=== PATIENT | male | born 1990 | race Two or more races ===

== ENCOUNTER 2016-03-24 22:18 | Inpatient (IN) | payer OTHER ==
--- NOTE | 2016-03-24 22:31 | HP ---
COWS - Scale Resting Pulse: 0= [place] 80 or Below Sweatin=Flushed/Facial Moisture Restless Observation: 5= Unable to Sit Still Pupil Size: 1= Pupils >than Normal Bone or Joint Aches: 4=Acute Joint/Muscle Pain Runny Nose/ Eye Tearin= Runny Nose/Eyes GI Upset > 30mins: 2= Nausea/Diarrhea Tremor Observation: 2= Slight Tremor Visible Yawning Observation: 2= >3x During Session Anxiety or Irritability: 4=Extreme Anxiety Goose Flesh Skin: 0=Smooth Skin COWS Score: 24 CIWA Score - CIWA Score Nausea/Vomitin Muscle Tremors: 4-Moderate,w/Arms Extend Anxiety: 4-Mod. Anxious/Guarded Agitation: 4-Moderately Restless Paroxysmal Sweats: 3 Orientation: 1-Uncertain about Date Tacttile Disturbances: 0-None Auditory Disturbances: 0-None Visual Disturbances: 0-None Headache: 2-Mild CIWA-Ar Total Score: 21 Admission ROS BHS - HPI Chief Complaint: WITHDRAWAL SX'S. SEEKING DETOX TXMENT Allergies/Adverse Reactions: Allergies Allergy/AdvReac Type Severity Reaction Status Date / Time No Known Drug Allergies Allergy Verified 03/24/16 22:48 seafood Allergy Uncoded 03/24/16 22:26 History of Present Illness: 25 Y.O. MALE WITH OPIOID AND BENZO DEPENDENCE ADMITTED FOR DETOX TXMENT. Exam Limitations: No Limitations - Ebola screening Have you traveled outside of the country in the last 21 days: No Have you had contact with anyone from an Ebola affected area: No Have you been sick,other than usual withdrawal symptoms: No Do you have a fever: No - Review of Systems Constitutional: Chills, Loss of Appetite, Malaise, Night Sweats, Changes in sleep, Unintentional Wgt. Loss EENT: reports: Nose Congestion Respiratory: reports: No Symptoms reported Cardiac: reports: No Symptoms Reported GI: reports: Nausea, Poor Appetite, Abdominal cramping : reports: No Symptoms Reported Musculoskeletal: reports: Back Pain, Joint Pain Integumentary: reports: No Symptoms Reported Neuro: reports: No Symptoms reported Endocrine: reports: No Symptoms Reported Hematology: reports: No Symptoms Reported Psychiatric: reports: Anxious Other Systems: Reviewed and Negative Patient History - Patient Medical History Hx Anemia: No Hx Asthma: No Hx Chronic Obstructive Pulmonary Disease (COPD): No Hx Cancer: No Hx Cardiac Disorders: No Hx Congestive Heart Failure: No Hx Hypertension: No Hx Hypercholesterolemia: No Hx Pacemaker: No HX Cerebrovascular Accident: No Hx Seizures: No Hx Dementia: No Hx Diabetes: No Hx Gastrointestinal Disorders: No Hx Liver Disease: No Hx Genitourinary Disorders: No Hx Sexually Transmitted Disorders: No Hx Renal Disease (ESRD): No Hx Thyroid Disease: No Hx Human Immunodeficiency Virus (HIV): No Hx Hepatitis C: No Hx Depression: No Hx Suicide Attempt: No Hx Bipolar Disorder: No Hx Schizophrenia: No Other Medical History: DENIES - Patient Surgical History Past Surgical History: No - PPD History Previous Implant?: Yes Documented Results: Positive w/proof Implanted On Prior [facility] Admission?: No PPD to be Administered?: No - Smoking Cessation Smoking history: Current every day smoker Have you smoked in the past 12 months: Yes Aproximately how many cigarettes per day: 3 Cigars Per Day: 0 Hx Chewing Tobacco Use: No Initiated information on smoking cessation: Yes 'Breaking Loose' booklet given: 03/24/16 - Substance & Tx. History Hx Alcohol Use: No Hx Substance Use: Yes Substance Use Type: Cocaine, Heroin, Tranquilizers (XANAX) Hx Substance Use Treatment: Yes ([facility]) - Substances Abused COCAINE Route: Injection Frequency: 3-6 times per week Amount used: $20 Age of first use: 21 Date of Last Use: 03/22/16 HEROIN Route: Injection Frequency: Daily Amount used: 30 BAGS Age of first use: 18 Date of Last Use: 03/22/16 XANAX Route: Oral Frequency: Daily Amount used: 16 MG Age of first use: 23 Date of Last Use: 03/22/16 Family Disease History - Family Disease History Family History: Denies Admission Physical Exam S - Physical General Appearance: Yes: Appropriately Dressed, Mild Distress, Tremorous, Anxious HEENTM: Yes: EOMI, Normocephalic, Normal Voice, ASHLEY, Pharynx Normal Respiratory: Yes: Chest Non-Tender, Lungs Clear, Normal Breath Sounds, No Respiratory Distress, No Accessory Muscle Use Neck: Yes: No masses,lesions,Nodules, Supple, Trachea in good position Breast: Yes: Breast Exam Deferred Cardiology: Yes: Regular Rhythm, S1, S2, Tachycardia Abdominal: Yes: Normal Bowel Sounds, Non Tender, Soft Genitourinary: Yes: Within Normal Limits Back: Yes: Within Normal Limits Musculoskeletal: Yes: full range of Motion, Other (UNSTEADY GAIT) Extremities: Yes: Normal Capillary Refill, Normal Range of Motion, Non-Tender, Tremors Neurological: Yes: Alert, Motor Strength 5/5 Integumentary: Yes: Normal Color, Warm, Moist, Track [place], Other ([place] NOTE TO UPPER EXTREMITIES NOT WRISTS. STATES DID IT TO SCARE HIS MOTHER INTO GIVING HIM SOME MONEY. DENIES PREVIOUS OR CURRENT SI.) Lymphatic: Yes: Within Normal Limits - Diagnostic (1) Nicotine dependence Current Visit: Yes Status: Chronic Qualifiers: Nicotine product type: cigarettes Substance use status: uncomplicated Qualified Code(s): F17.210 - Nicotine dependence, cigarettes, uncomplicated (2) Opioid dependence with withdrawal Current Visit: Yes Status: Chronic (3) Sedative, hypnotic or anxiolytic dependence with withdrawal, uncomplicated Current Visit: Yes Status: Chronic (4) Cocaine dependence, uncomplicated Current Visit: Yes Status: Chronic Cleared for Admission S - Detox or Rehab [facility] Level of Care: Medically Managed Detox Regimen/Protocol: Methadone/Valium BHS Breath Alcohol Content Breath Alcohol Content: 0 Vital Signs - Vital Signs Vital Signs Refused: No Temperature: 97 F Temperature Source: Oral Pulse Rate: 78 Respiratory Rate: 18 Blood Pressure: 147/89 BP Location: Right Arm Blood Pressure Position: Sitting - Height Height: 5 ft 11 in - Weight Weight: 77.111 kg Weight Measurement Method: Stated by Patient Body Mass Index (BMI): 23.7 Urine Drug Screen - Test Device Lot Number: [id number] Expiration Date: 05/10/17 - Control Is Test Valid: Yes - Results Drug Screen Negative: No Urine Drug Screen Results: RUBÉN-Cocaine, OPI-Opiates, BZO-Benzodiazepines, OXY- Oxycodone
[2016-03-24 22:40] VITALS: BMI 23.7
[2016-03-24] MEDS ORDERED: guaiFENesin/D-METHORPHAN HB 10 ML UNIT-DOSE CUPS PO PRN (22:40)
[2016-03-24] MEDS ORDERED: LOPERAMIDE HCL 2 MG CAPSULE PO PRN (22:40)
[2016-03-24] MEDS ORDERED: diazePAM 5 MG TABLET PO ONE (22:40)
[2016-03-24] MEDS ORDERED: P-EPHED 60MG/TRIPROLIDI 2.5MG TABLET PO PRN (22:40)
[2016-03-24] MEDS ORDERED: MAGNESIUM CITRATE 300 ML BOTTLE PO PRN (22:40)
[2016-03-24] MEDS ORDERED: NICOTINE POLACRILEX 2 MG GUM BC PRN (22:40)
[2016-03-24] MEDS ORDERED: ACETAMINOPHEN 325 MG TABLET (FP) PO PRN (22:40)
[2016-03-24] MEDS ORDERED: diphenhydrAMINE HCL 50 MG CAPSULE PO PRN (22:40)
[2016-03-24] MEDS ORDERED: MAGNESIUM HYDROX 2400MG/30ML ORAL SUSPENSION 30 ML CUP PO PRN (22:40)
[2016-03-24] MEDS ORDERED: METHADONE HCL 10 MG TABLET (FOR DETOX USE ONLY) PO ONE ×2 (22:40→23:00)
[2016-03-24] MEDS ORDERED: IBUPROFEN 400 MG TABLET (FP) PO PRN (22:40)
[2016-03-24] MEDS ORDERED: MAG HYDROX/AL HYDROX/SIMETH 30 ML UNIT-DOSE CUP PO PRN (22:40)
[2016-03-24] MEDS ORDERED: MENTHOL/PHENOL 1 EACH UD MM PRN (22:40)
[2016-03-24] MEDS: diazePAM 5 MG TABLET PO SCH (23:45)
[2016-03-25] MEDS: diazePAM 5 MG TABLET PO SCH ×3 (05:25→22:55)
[2016-03-25] MEDS: diazePAM 5 MG TABLET PO PRN ×2 (09:07→18:21)
[2016-03-25] MEDS: PRENATAL VITAMINS W/ FOLIC ACID TABLET (FP) PO SCH (09:15)
[2016-03-25 09:59] LABS: ALBUMIN 3.6 g/dl (3.4-5.0); ANION GAP 10 (8-16); BILIRUBIN,TOTAL 0.4 mg/dL (0.2-1.0); CALCIUM 9.1 mg/dL (8.5-10.1); CO2 28 mmol/L (21-32); CREATININE 1.2 mg/dL (0.7-1.3); GLUCOSE,RANDOM 130 mg/dL (74-106); MCH 27.7 pg (25.7-33.7); MCHC 32.8 g/dl (32.0-35.9); MEAN CELL VOLUME 84.4 fl (80-96); PLATELET COUNT 129 K/MM3 (134-434); RDW 15.6 % (11.9-15.9); SGOT/AST 18 U/L (15-37); SGPT/ALT 22 U/L (12-78); TOT PROT 6.5 g/dl (6.4-8.2); WHITE BLOOD COUNT 4.8 K/mm3 (4.0-10.0)
[2016-03-25 10:00] LABS: ALK PHOS 47 U/L (45-117)
[2016-03-25] MEDS ORDERED: METHADONE HCL 10 MG TABLET (FOR DETOX USE ONLY) PO SCH (10:00)
[2016-03-25] MEDS: NICOTINE 14 MG/24 HOURS TOPICAL PATCH TD SCH (10:31)
--- NOTE | 2016-03-25 10:44 | PN ---
[facility] CIWA - CIWA Score Nausea/Vomitin Muscle Tremors: 2 Anxiety: 2 Agitation: 3 Paroxysmal Sweats: 3 Orientation: 0-Oriented Tacttile Disturbances: 1-Very Mild Itch/Numbness Auditory Disturbances: 0-None Visual Disturbances: 0-None Headache: 0-None Present CIWA-Ar Total Score: 13 S COWS - Scale Resting Pulse: 1= [place] 81-100 Sweatin=Flushed/Facial Moisture Restless Observation: 1= Difficult to Sit Still Pupil Size: 1= Pupils >than Normal Bone or Joint Aches: 1= Mild Discomfort Runny Nose/ Eye Tearin= Nasal Congestion GI Upset > 30mins: 1= Stomach Cramp Tremor Observation of Outstretched Hands: 1= Tremor [place], Not Seen Yawning Observation: 0= None Anxiety or Irritability: 2=Irritable/Anxious Goose Flesh Skin: 0=Smooth Skin COWS Score: 11 S Progress Note (SOAP) Subjective: interrupted sleep, sweats, Objective: 03/25/16 10:43 Vital Signs Temperature 98.4 F 03/25/16 10:00 Pulse Rate 98 H 03/25/16 10:00 Respiratory Rate 18 03/25/16 10:00 Blood Pressure 127/73 03/25/16 10:00 O2 Sat by Pulse Oximetry (%) Laboratory Results - last 24 hr 03/25/16 03/25/16 07:00 07:00 WBC 4.8 RBC 4.81 Hgb 13.3 Hct 40.6 MCV 84.4 MCHC 32.8 RDW 15.6 Plt Count 129 L MPV 10.0 Sodium 142 Potassium 3.6 Chloride 104 Carbon Dioxide 28 Anion Gap 10 BUN 11 Creatinine 1.2 Creat Clearance w eGFR > 60 Random Glucose 130 H Calcium 9.1 Total Bilirubin 0.4 AST 18 ALT 22 Alkaline Phosphatase 47 Total Protein 6.5 Albumin 3.6 pt aox3 in nad , lying in bed . 03/25/16 10:44 Assessment: withdrawl sx's 03/25/16 10:43 cont. detox increase fluids
--- NOTE | 2016-03-25 11:58 | EKG ---
Test Reason : Blood Pressure : / mmHG Vent. Rate : 080 BPM Atrial Rate : 080 BPM P-R Int : 178 ms QRS Dur : 094 ms QT Int : 374 ms P-R-T Axes : 063 077 056 degrees QTc Int : 431 ms NORMAL SINUS RHYTHM NORMAL ECG NO PREVIOUS ECGS AVAILABLE Confirmed by PEMA CHAMBERLAIN MD ([id number]) on 03/25/2016 11:58:40 AM Referred By: Confirmed By:PEMA CHAMBERLAIN MD
[2016-03-25 14:41] LABS: URINE APPEARANCE CLEAR; URINE BILIRUBIN NEGATIVE (NEGATIVE); URINE BLOOD NEGATIVE (NEGATIVE); URINE COLOR YELLOW; URINE GLUCOSE (UA) NEGATIVE (NEGATIVE); URINE KETONE NEGATIVE (NEGATIVE); URINE LEUK ESTERASE NEGATIVE (NEGATIVE); URINE NITRITE NEGATIVE (NEGATIVE); URINE PROTEIN NEGATIVE (NEGATIVE); URINE UROBILINOGEN 2.0 E.U/dl E.U./dl (0.2-1.0)
[2016-03-25] MEDS: THIAMINE HCL 100 MG TABLET (FP) PO SCH (22:55)
[2016-03-26] MEDS: diazePAM 5 MG TABLET PO PRN ×3 (02:48→19:57)
[2016-03-26] MEDS: diazePAM 5 MG TABLET PO SCH ×2 (10:29→22:37)
[2016-03-26] MEDS: METHADONE HCL 5 MG TABLET (FOR DETOX USE ONLY) PO SCH (10:29)
[2016-03-26] MEDS: PRENATAL VITAMINS W/ FOLIC ACID TABLET (FP) PO SCH (10:30)
[2016-03-26] MEDS: NICOTINE 14 MG/24 HOURS TOPICAL PATCH TD SCH (10:30)
--- NOTE | 2016-03-26 11:37 | PN ---
[facility] CIWA - CIWA Score Nausea/Vomitin-No Nausea/No Vomiting Muscle Tremors: 3 Anxiety: 3 Agitation: 4-Moderately Restless Paroxysmal Sweats: 3 Orientation: 0-Oriented Tacttile Disturbances: 0-None Auditory Disturbances: 0-None Visual Disturbances: 0-None Headache: 0-None Present CIWA-Ar Total Score: 13 BHS COWS - Scale Resting Pulse: 0= [place] 80 or Below Sweatin=Flushed/Facial Moisture Restless Observation: 1= Difficult to Sit Still Pupil Size: 0= Normal to Room Light Bone or Joint Aches: 2= Severe Diffuse Aches Runny Nose/ Eye Tearin= Runny Nose/Eyes GI Upset > 30mins: 0= None Tremor Observation of Outstretched Hands: 2= Slight Tremor Visible Yawning Observation: 2= >3x During Session Anxiety or Irritability: 2=Irritable/Anxious Goose Flesh Skin: 0=Smooth Skin COWS Score: 13 S Progress Note (SOAP) Subjective: shakes sweats agitation anxiety interrupted sleep Objective: 03/26/16 11:36 Vital Signs Temperature 97.5 F L 03/26/16 10:00 Pulse Rate 79 03/26/16 10:00 Respiratory Rate 18 03/26/16 10:00 Blood Pressure 124/65 03/26/16 10:00 O2 Sat by Pulse Oximetry (%) Laboratory Tests 03/25/16 03/25/16 03/25/16 07:00 07:00 07:00 WBC 4.8 RBC 4.81 Hgb 13.3 Hct 40.6 MCV 84.4 MCHC 32.8 RDW 15.6 Plt Count 129 L MPV 10.0 Sodium 142 Potassium 3.6 Chloride 104 Carbon Dioxide 28 Anion Gap 10 BUN 11 Creatinine 1.2 Creat Clearance w eGFR > 60 Random Glucose 130 H Calcium 9.1 Total Bilirubin 0.4 AST 18 ALT 22 Alkaline Phosphatase 47 Total Protein 6.5 Albumin 3.6 Urine Color Urine Appearance Urine pH Ur Specific [place] Urine Protein Urine Glucose (UA) Urine Ketones Urine Blood Urine Nitrite Urine Bilirubin Urine Urobilinogen Ur Leukocyte Esterase RPR Titer Nonreactive 03/25/16 12:30 WBC RBC Hgb Hct MCV MCHC RDW Plt Count MPV Sodium Potassium Chloride Carbon Dioxide Anion Gap BUN Creatinine Creat Clearance w eGFR Random Glucose Calcium Total Bilirubin AST ALT Alkaline Phosphatase Total Protein Albumin Urine Color Yellow Urine Appearance Clear Urine pH 6.0 Ur Specific [place] 1.020 Urine Protein Negative Urine Glucose (UA) Negative Urine Ketones Negative Urine Blood Negative Urine Nitrite Negative Urine Bilirubin Negative Urine Urobilinogen 2.0 e.u/dl Ur Leukocyte Esterase Negative RPR Titer awake/alert ambulating no acute distress Assessment: 03/26/16 11:36 withdrawal sx Plan: continue detox increase fluids
[2016-03-26] MEDS: THIAMINE HCL 100 MG TABLET (FP) PO SCH (22:37)
[2016-03-27] MEDS: PRENATAL VITAMINS W/ FOLIC ACID TABLET (FP) PO SCH (10:31)
[2016-03-27] MEDS: METHADONE HCL 5 MG TABLET (FOR DETOX USE ONLY) PO SCH (10:32)
[2016-03-27] MEDS: diazePAM 5 MG TABLET PO SCH ×2 (10:32→22:47)
[2016-03-27] MEDS: NICOTINE 14 MG/24 HOURS TOPICAL PATCH TD SCH (10:32)
--- NOTE | 2016-03-27 11:43 | PN ---
BHS Progress Note (SOAP) Subjective: feeling better Objective: 03/27/16 11:39 Vital Signs Temperature 98.4 F 03/27/16 10:11 Pulse Rate 74 03/27/16 10:11 Respiratory Rate 18 03/27/16 10:11 Blood Pressure 141/75 03/27/16 10:11 O2 Sat by Pulse Oximetry (%) Laboratory Tests 03/25/16 03/25/16 03/25/16 07:00 07:00 07:00 WBC 4.8 RBC 4.81 Hgb 13.3 Hct 40.6 MCV 84.4 MCHC 32.8 RDW 15.6 Plt Count 129 L MPV 10.0 Sodium 142 Potassium 3.6 Chloride 104 Carbon Dioxide 28 Anion Gap 10 BUN 11 Creatinine 1.2 Creat Clearance w eGFR > 60 Random Glucose 130 H Calcium 9.1 Total Bilirubin 0.4 AST 18 ALT 22 Alkaline Phosphatase 47 Total Protein 6.5 Albumin 3.6 Urine Color Urine Appearance Urine pH Ur Specific [place] Urine Protein Urine Glucose (UA) Urine Ketones Urine Blood Urine Nitrite Urine Bilirubin Urine Urobilinogen Ur Leukocyte Esterase RPR Titer Nonreactive 03/25/16 12:30 WBC RBC Hgb Hct MCV MCHC RDW Plt Count MPV Sodium Potassium Chloride Carbon Dioxide Anion Gap BUN Creatinine Creat Clearance w eGFR Random Glucose Calcium Total Bilirubin AST ALT Alkaline Phosphatase Total Protein Albumin Urine Color Yellow Urine Appearance Clear Urine pH 6.0 Ur Specific [place] 1.020 Urine Protein Negative Urine Glucose (UA) Negative Urine Ketones Negative Urine Blood Negative Urine Nitrite Negative Urine Bilirubin Negative Urine Urobilinogen 2.0 e.u/dl Ur Leukocyte Esterase Negative RPR Titer pt aox3 in nad , restless Assessment: 03/27/16 11:40 Vital Signs Temperature 98.4 F 03/27/16 10:11 Pulse Rate 74 03/27/16 10:11 Respiratory Rate 18 03/27/16 10:11 Blood Pressure 141/75 03/27/16 10:11 O2 Sat by Pulse Oximetry (%) Laboratory Tests 03/25/16 03/25/16 03/25/16 07:00 07:00 07:00 WBC 4.8 RBC 4.81 Hgb 13.3 Hct 40.6 MCV 84.4 MCHC 32.8 RDW 15.6 Plt Count 129 L MPV 10.0 Sodium 142 Potassium 3.6 Chloride 104 Carbon Dioxide 28 Anion Gap 10 BUN 11 Creatinine 1.2 Creat Clearance w eGFR > 60 Random Glucose 130 H Calcium 9.1 Total Bilirubin 0.4 AST 18 ALT 22 Alkaline Phosphatase 47 Total Protein 6.5 Albumin 3.6 Urine Color Urine Appearance Urine pH Ur Specific [place] Urine Protein Urine Glucose (UA) Urine Ketones Urine Blood Urine Nitrite Urine Bilirubin Urine Urobilinogen Ur Leukocyte Esterase RPR Titer Nonreactive 03/25/16 12:30 WBC RBC Hgb Hct MCV MCHC RDW Plt Count MPV Sodium Potassium Chloride Carbon Dioxide Anion Gap BUN Creatinine Creat Clearance w eGFR Random Glucose Calcium Total Bilirubin AST ALT Alkaline Phosphatase Total Protein Albumin Urine Color Yellow Urine Appearance Clear Urine pH 6.0 Ur Specific [place] 1.020 Urine Protein Negative Urine Glucose (UA) Negative Urine Ketones Negative Urine Blood Negative Urine Nitrite Negative Urine Bilirubin Negative Urine Urobilinogen 2.0 e.u/dl Ur Leukocyte Esterase Negative RPR Titer 03/27/16 11:42 withdrawl sx;s Plan: cont. detox increase fluids
[2016-03-27] MEDS: diazePAM 5 MG TABLET PO PRN ×2 (14:43→18:50)
[2016-03-27] MEDS: THIAMINE HCL 100 MG TABLET (FP) PO SCH (22:47)
[2016-03-27] MEDS: hydrOXYzine PAMOATE 50 MG CAPSULE (FP) PO PRN (23:38)
[2016-03-28] MEDS ORDERED: diazePAM 5 MG TABLET PO SCH (10:00)
[2016-03-28] MEDS ORDERED: METHADONE HCL 10 MG TABLET (FOR DETOX USE ONLY) PO SCH (10:00)
[2016-03-28] MEDS: PRENATAL VITAMINS W/ FOLIC ACID TABLET (FP) PO SCH (10:44)
[2016-03-28] MEDS: hydrOXYzine PAMOATE 50 MG CAPSULE (FP) PO PRN ×3 (10:46→19:41)
[2016-03-28] MEDS: NICOTINE 14 MG/24 HOURS TOPICAL PATCH TD SCH (10:48)
--- NOTE | 2016-03-28 12:18 | PN ---
BHS Progress Note (SOAP) Subjective: groggy sweats irritable Objective: 03/28/16 12:17 Vital Signs Temperature 97.3 F L 03/28/16 09:21 Pulse Rate 67 03/28/16 09:21 Respiratory Rate 20 03/28/16 09:21 Blood Pressure 136/70 03/28/16 09:21 O2 Sat by Pulse Oximetry (%) awake/alert ambulating no acute distress Assessment: 03/28/16 12:17 withdrawal sx Plan: continue detox increase fluids d/c in am
[2016-03-28] MEDS: THIAMINE HCL 100 MG TABLET (FP) PO SCH (22:33)
[2016-03-29] MEDS ORDERED: METHADONE HCL 5 MG TABLET (FOR DETOX USE ONLY) PO SCH (06:00)
[2016-03-29 06:50] VITALS: BP 145/87; PULSE 74; TEMP 96.8
--- NOTE | 2016-03-29 09:17 | DS ---
[facility] Detox Discharge Summary Admission Date: 03/24/16 Discharge Date: 03/29/16 - History Present History: Cocaine Dependence, Opioid Dependence, Sedative Dependence Pertinent Past History: below - Physical Exam Results Vital Signs: Vital Signs Temperature 96.8 F L 03/29/16 06:00 Pulse Rate 74 03/29/16 06:00 Respiratory Rate 18 03/29/16 06:00 Blood Pressure 145/87 03/29/16 06:00 O2 Sat by Pulse Oximetry (%) Pertinent Admission Physical Exam Findings: admitted in withdrawal medically stable on dc dc today Laboratory Tests 03/25/16 03/25/16 03/25/16 07:00 07:00 07:00 WBC 4.8 RBC 4.81 Hgb 13.3 Hct 40.6 MCV 84.4 MCHC 32.8 RDW 15.6 Plt Count 129 L MPV 10.0 Sodium 142 Potassium 3.6 Chloride 104 Carbon Dioxide 28 Anion Gap 10 BUN 11 Creatinine 1.2 Creat Clearance w eGFR > 60 Random Glucose 130 H Calcium 9.1 Total Bilirubin 0.4 AST 18 ALT 22 Alkaline Phosphatase 47 Total Protein 6.5 Albumin 3.6 Urine Color Urine Appearance Urine pH Ur Specific [place] Urine Protein Urine Glucose (UA) Urine Ketones Urine Blood Urine Nitrite Urine Bilirubin Urine Urobilinogen Ur Leukocyte Esterase RPR Titer Nonreactive 03/25/16 12:30 WBC RBC Hgb Hct MCV MCHC RDW Plt Count MPV Sodium Potassium Chloride Carbon Dioxide Anion Gap BUN Creatinine Creat Clearance w eGFR Random Glucose Calcium Total Bilirubin AST ALT Alkaline Phosphatase Total Protein Albumin Urine Color Yellow Urine Appearance Clear Urine pH 6.0 Ur Specific [place] 1.020 Urine Protein Negative Urine Glucose (UA) Negative Urine Ketones Negative Urine Blood Negative Urine Nitrite Negative Urine Bilirubin Negative Urine Urobilinogen 2.0 e.u/dl Ur Leukocyte Esterase Negative RPR Titer Vital Signs - 24 hr 03/28/16 03/28/16 03/28/16 09:21 13:57 18:23 Temperature 97.3 F L 97.7 F 98 F Pulse Rate 67 100 H 58 L Respiratory 20 18 16 Rate Blood Pressure 136/70 134/70 109/50 03/28/16 03/29/16 03/29/16 21:57 00:30 03:30 Temperature 98.1 F Pulse Rate 87 Respiratory 16 18 18 Rate Blood Pressure 123/76 03/29/16 06:00 Temperature 96.8 F L Pulse Rate 74 Respiratory 18 Rate Blood Pressure 145/87 - Treatment Hospital Course: Detox Protocol Followed, Detoxed Safely, Responded well, Discharged Condition Good, Rehab Referral Accepted - Medication Discharge Medications: Ambulatory Orders NK [No Known Home Medication] 03/24/16 - Diagnosis (1) Cocaine dependence, uncomplicated Current Visit: Yes Status: Chronic (2) Nicotine dependence Current Visit: Yes Status: Chronic Qualifiers: Nicotine product type: cigarettes Substance use status: uncomplicated Qualified Code(s): F17.210 - Nicotine dependence, cigarettes, uncomplicated (3) Opioid dependence with withdrawal Current Visit: Yes Status: Chronic (4) Sedative, hypnotic or anxiolytic dependence with withdrawal, uncomplicated Current Visit: Yes Status: Chronic - AMA Did Patient Leave Against Medical Advice: No
== END 2016-03-29 09:20 | disposition home or self-care (01) | DRG 773 ==
LOC: YASAS 22:18 → Y6N 22:27
PROVIDERS: ADMIT Internal Medicine; ATTEND Internal Medicine
PROC: HZ2ZZZZ Detoxification Services for Substance Abuse Treatment (ICD-10-PCS; principal; 2016-03-29)
DX: F11.23 Opioid dependence with withdrawal (principal); F13.230 Sedative, hypnotic or anxiolytic dependence with withdrawal, uncomplicated; F14.20 Cocaine dependence, uncomplicated; F17.210 Nicotine dependence, cigarettes, uncomplicated
CPT/HCPCS: 36415; 71020-TC; 80053; 81003; 85027; 86593; 93005; 93010